=== PATIENT | male | born 1980 | race Caucasian/White ===

== ENCOUNTER 2016-08-18 21:55 | Emergency (ER) | payer MEDICAID, OTHER ==
[~2016-08-18] VITALS: Ht 167.6 cm; Wt 87.0 kg
[~2016-08-18 21:55] MED LIST: ACET325T33 PO; ALBU8.5H3 INH; PRED20TA PO
[2016-08-18 22:06] VITALS: Ht 167.6 cm; Wt 87.0 kg
--- NOTE | 2016-08-19 02:27 | ERD ---
ER Documentation Chief Complaint Date/Time DATE: 08/19/16 TIME: 02:25 Chief Complaint RUQ ABDOMINAL PAIN WITH CHEST PAIN X 1 WEEK HPI 36-year-old male presents to emergency department for complete right upper quadrant abdominal pain, mid chest pain for one week. Patient described the pain as sharp pain, 6/10 scale, is worse after eating. She denies any nausea vomiting or diarrhea. Patient denies any fever or chills. Patient denies any cough. Patient denies any dyspnea on exertion or dyspnea on lying the. Patient did not take any medications up and symptoms. ROS All systems reviewed and are negative except as per history of present illness. Medications Home Meds Active Scripts Acetaminophen* (Tylenol*) 325 Mg Tablet, 2 TAB PO Q6 Y for PAIN AND OR ELEVATED TEMP, #20 TAB Prov:PEDRO HINTON NP 09/24/15 Albuterol Sulfate* (Proair HFA*) 8.5 Gm Hfa.aer.ad, 2 PUFF INH Q4, #1 INHALER Prov:PEDRO HINTON NP 09/24/15 Prednisone* (Prednisone*) 20 Mg Tab, 40 MG PO DAILY for 4 Days, TAB Prov:PEDRO HINTON NP 09/24/15 Allergies Allergies: Coded Allergies: No Known Allergy (Unverified , 08/16/14) PMhx/Soc Medical and Surgical Hx: pt denies Medical Hx, pt denies Surgical Hx History of Surgery: No Anesthesia Reaction: No Hx Neurological Disorder: No Hx Respiratory Disorders: No Hx Cardiac Disorders: No Hx Psychiatric Problems: No Hx Miscellaneous Medical Probl: No Hx Alcohol Use: Yes Hx Substance Use: No Hx Tobacco Use: Yes Smoking Status: Current every day smoker FmHx Family History: No coronary disease, No diabetes, No other Physical Exam Vitals Vital Signs Date Time Temp Pulse Resp B/P Pulse Ox O2 Delivery O2 Flow Rate FiO2 08/18/16 22:06 96.1 81 20 120/73 98 Physical Exam GENERAL: The patient is well developed and appropriate for usual state of health, in no apparent distress. CHEST: Clear to auscultation bilaterally. There are no rales, wheezes or rhonchi. HEART: Regular rate and rhythm. No murmurs, clicks, rubs or gallops. No S3 or S4. ABDOMEN: Soft, nontender and nondistended. Good bowel sounds. No rebound or guarding. No gross peritonitis. No gross organomegaly or masses. No Ivan sign or McBurney point tenderness. BACK: No midline or flank tenderness. EXTREMITIES: Equal pulses bilaterally. There is no peripheral clubbing, cyanosis or edema. No focal swelling or erythema. Full range of motion. Grossly neurovascularly intact. NEURO: Alert and oriented. Cranial nerves 2-12 intact. Motor strength in all 4 extremities with 5/5 strength. Sensation grossly intact. Normal speech and gait. SKIN: There is no apparent rash or petechia. The skin is warm and dry. HEMATOLOGIC AND LYMPHATIC: There is no evidence of excessive bruising or lymphedema. No gross cervical, axillary, or inguinal lymphadenopathy. Result Diagram: 08/19/165 08/19/165 Results 24 hrs Laboratory Tests Test 08/19/16 02:45 Alanine Aminotransferase (ALT/SGPT) 52IU/L Albumin 4.5g/dl Albumin/Globulin Ratio 1.15 Alkaline Phosphatase 125IU/L Anion Gap 19 Aspartate Amino Transf (AST/SGOT) 29IU/L Basophils # 0.010^3/ul Basophils % 0.4% Blood Morphology Comment Blood Urea Nitrogen 17mg/dl Calcium Level 9.7mg/dl Carbon Dioxide Level 27mmol/L Chloride Level 103mmol/L Creatinine 0.67mg/dl Direct Bilirubin 0.00mg/dl Eosinophils # 0.610^3/ul Eosinophils % 6.7% Globulin 3.90g/dl Glucose Level 98mg/dl Hematocrit 43.3% Hemoglobin 15.0g/dl Indirect Bilirubin 0.2mg/dl Lipase 134U/L Lymphocytes # 3.410^3/ul Lymphocytes % 40.0% Mean Corpuscular Hemoglobin 28.9pg Mean Corpuscular Hemoglobin Concent 34.6g/dl Mean Corpuscular Volume 83.7fl Mean Platelet Volume 9.0fl Monocytes # 1.010^3/ul Monocytes % 11.4% Neutrophils # 3.610^3/ul Neutrophils % 41.5% Nucleated Red Blood Cells # 0.010^3/ul Nucleated Red Blood Cells % 0.0/100WBC Platelet Count 18470^3/UL Potassium Level 4.5mmol/L Red Blood Count 5.1710^6/ul Red Cell Distribution Width 12.8% Sodium Level 144mmol/L Total Bilirubin 0.2mg/dl Total Protein 8.4g/dl Troponin I < 0.010ng/ml Urine Bilirubin NEGATIVE Urine Clarity CLEAR Urine Color LT. YELLOW Urine Glucose NEGATIVE% Urine Hemoglobin NEGATIVE Urine Ketones NEGATIVE Urine Leukocyte Esterase NEGATIVE Urine Nitrite NEGATIVE Urine Specific [place] 1.020 Urine Total Protein NEGATIVE Urine Urobilinogen 0.2 E.U./dL Urine pH 6.0 White Blood Count 8.610^3/ul EKG was done, read by me and is normal sinus rhythm at a rate of 65, normal axis , there is no ST changes or changes in the EKG that indicates any cardiac emergencies at this time. Patient's EKG was also reviewed by Dr. Anthony. Impression: no acute findings on EKG PROCEDURE: XR Chest. CLINICAL INDICATION: difficulty breathing TECHNIQUE: Single frontal chest x-ray. COMPARISON: None. FINDINGS: The lungs are clear. No focal opacification is seen. The cardiomediastinal silhouette is unremarkable. The osseous structures are unremarkable. IMPRESSION: 1. There is no acute cardiopulmonary process. RPTAT: HJES .Carmelo Shahid MD, MD Date Time Electronically viewed and signed by .Carmelo Shahid MD, MD on 08/19/2016 02:52 .S/ PROCEDURE: US Abdomen (right upper quadrant). CLINICAL INDICATION: Abdominal pain TECHNIQUE: Multiple real-time longitudinal and transverse images of the right upper quadrant of the abdomen were acquired utilizing a curved array transducer. Images were reviewed on a high-resolution PACS workstation. COMPARISON: 08/16/2014 FINDINGS: The study is limited due to overlying bowel gas. There is mild diffuse increased hepatic echogenicity most suggestive of mild hepatic steatosis not significantly changed compared to previous study. The length of the liver equals 16.5 cm, within normal limits. There is normal hepatopedal flow within the main portal vein. The gallbladder is contracted. No definite cholelithiasis or gallbladder wall thickening is seen. No pericholecystic fluid is seen. No intra or extrahepatic biliary dilatation is seen. The common bile duct measures 3.3 mm in maximal dimension. The pancreas is not seen due to bowel gas. No free fluid is identified. The right kidney measures 12.2 cm in length. There is normal echogenicity within the right kidney. There is no perinephric fluid collection. No hydronephrosis, mass, or calculus is seen. IMPRESSION: Pancreas not seen. Mild diffuse increased hepatic echogenicity most suggestive of mild hepatic steatosis not significantly changed compared to previous study. Contracted gallbladder. Please see above. RPTAT: HJES .Carmelo Shahid MD, MD Date Time Electronically viewed and signed by .Carmelo Shahid MD, MD on 08/19/2016 03:33 .S/ CC: EARNEST MARTIN [employer] [place] Procedures/MDM Medical Decision Making: Patient symptoms consistent with gastritis, possible acid reflux assistance this is a combination of epigastric right upper quadrant pain and chest pain. There is low suspicion for abdominal emergencies at this time. Patients abdominal exam is normal at this time. Patients radiology exam does not show any abdominal emergencies at this time. There is low suspicion for appendicitis, cholecystitis, abdominal aortic aneurysms or peritonitis at this time. There is low suspicion for sepsis. Patient appears well and is hemodynamically stable. Troponin is negative. No suspicion for nSTEMI. EKG does not show any changes indicating cardiac emergencies at this time. Disposition: Home. Condition: Stable Prescription omeprazole, Zofran, and Mylanta Instructions: Patient is advised to take medications as prescribed. Patient is advised to rest, increase fluid intake and do brat diet for next 1-2 days and progress as tolerated. Patient is advised that if symptoms are worse, severe abdominal pain, uncontrolled vomiting, high fever, severe flank pain, worst signs and symptoms, to return to the emergency department immediately. Otherwise, patient can follow up with primary care doctor in 5-7 days. Departure Diagnosis: Primary Impression: Abdominal pain Abdominal location: epigastric Qualified Code: R10.13 - Epigastric pain Additional Impression: Atypical chest pain Condition: Stable Patient Instructions: Abdominal Pain, Chest Pain, Uncertain Cause Additional Instructions: Patient is advised to take medications as prescribed. Patient is advised to rest , increase fluid intake and do brat diet for next 1-2 days and progress as tolerated. Patient is advised that if symptoms are worse, severe abdominal pain , uncontrolled vomiting, high fever, severe flank pain, worst signs and symptoms , to return to the emergency department immediately. Otherwise, patient can follow up with primary care doctor in 5-7 days. EARNEST MARTIN NP Aug 19, 2016 02:27
--- NOTE | 2016-08-19 02:58 | RADRPT ---
PROCEDURE: XR Chest. CLINICAL INDICATION: Patient experiencing Abdominal Pain. TECHNIQUE: Single frontal chest x-ray. COMPARISON: 09/24/2015 FINDINGS: There is hypoinflation of the lungs. No focal pulmonary infiltrate is seen. The heart is not enlar ged.. IMPRESSION: 1. Hypoinflation of the lungs. No definite acute abnormality seen. RPTAT: HJES .Carmelo Shahid MD, MD Date Time Electronically viewed and signed by .Carmelo Shahid MD, MD on 08/19/2016 02:57 .S/
[2016-08-19 03:21] LABS: ALBUMIN 4.5 g/dl (3.3-4.9); CHLORIDE 103 mmol/L (97-110); SODIUM 144 mmol/L (135-144)
[2016-08-19 03:22] LABS: POTASSIUM 4.5 mmol/L (3.5-5.1)
[2016-08-19 03:23] LABS: CREATININE 0.67 mg/dl (0.61-1.24)
[2016-08-19 03:24] LABS: ALANINE AMINOTRANSFERASE 52 IU/L (13-69); ALBUMIN/GLOBULIN RATIO 1.15; ALKALINE PHOSPHATASE 125 IU/L (42-121); ANION GAP 19 (8-16); ASPARTATE AMINO TRANSFERASE 29 IU/L (15-46); BILIRUBIN,INDIRECT 0.2 mg/dl (0-1.1); BILIRUBIN,TOTAL 0.2 mg/dl (0.2-1.3); BLOOD UREA NITROGEN 17 mg/dl (7-20); CALCIUM 9.7 mg/dl (8.4-10.2); CARBON DIOXIDE 27 mmol/L (21-31); GLUCOSE 98 mg/dl (70-220); TOTAL PROTEIN 8.4 g/dl (6.1-8.1)
[2016-08-19 03:29] LABS: BASOPHILS % 0.4 % (0.0-2.0); EOSINOPHILS # 0.6 10^3/ul (0.0-0.5); EOSINOPHILS % 6.7 % (0.0-7.0); HEMATOCRIT 43.3 % (42.0-52.0); LYMPHOCYTES # 3.4 10^3/ul (0.8-2.9); MEAN CORPUSCULAR HEMOGLOBIN 28.9 pg (29.0-33.0); MEAN CORPUSCULAR HGB CONC 34.6 g/dl (32.0-37.0); MEAN CORPUSCULAR VOLUME 83.7 fl (82.0-101.0); MONOCYTES % 11.4 % (0.0-11.0); NEUTROPHIL # 3.6 10^3/ul (1.6-7.5); NEUTROPHILS % 41.5 % (39.0-77.0); PLATELET COUNT 300 10^3/UL (140-440); RED BLOOD COUNT 5.17 10^6/ul (4.70-6.10); RED CELL DISTRIBUTION WIDTH 12.8 % (11.5-14.5); UNCORRECTED WBC 8.6 10^3/ul (4.8-10.8); WHITE BLOOD COUNT 8.6 10^3/ul (4.8-10.8)
[2016-08-19 03:34] LABS: CONDITION 1
--- NOTE | 2016-08-19 03:34 | RADRPT ---
PROCEDURE: US Abdomen (right upper quadrant). CLINICAL INDICATION: Abdominal pain TECHNIQUE: Multiple real-time longitudinal and transverse images of the right upper quadrant of th e abdomen were acquired utilizing a curved array transducer. Images were reviewed on a high-resoluti on PACS workstation. COMPARISON: 08/16/2014 FINDINGS: The study is limited due to overlying bowel gas. There is mild diffuse increased hepatic echogenici ty most suggestive of mild hepatic steatosis not significantly changed compared to previous study. T he length of the liver equals 16.5 cm, within normal limits. There is normal hepatopedal flow within the main portal vein. The gallbladder is contracted. No definite cholelithiasis or gallbladder wal l thickening is seen. No pericholecystic fluid is seen. No intra or extrahepatic biliary dilatation is seen. The common bile duct measures 3.3 mm in maximal dimension. The pancreas is not seen due to bowel gas. No free fluid is identified. The right kidney measures 12.2 cm in length. There is normal echogenicity within the right kidney. There is no perinephric fluid collection. No hydronephrosis, mass, or calculus is seen. IMPRESSION: Pancreas not seen. Mild diffuse increased hepatic echogenicity most suggestive of mild hepatic steat osis not significantly changed compared to previous study. Contracted gallbladder. Please see above . RPTAT: HJES .Carmelo Shahid MD, Date Time Electronically viewed and signed by .Carmelo Shahid MD, on 08/19/2016 03:33 .S/
[2016-08-19 03:38] LABS: ADD UMIC NO; URINE BILIRUBIN (Dip) NEGATIVE (NEGATIVE); URINE BLOOD (Dip) NEGATIVE (NEGATIVE); URINE COLOR LT. YELLOW (YELLOW); URINE GLUCOSE (Dip) NEGATIVE (NEGATIVE); URINE KETONES (Dip) NEGATIVE (NEGATIVE); URINE LEUKOCYTE ESTERASE (Dip) NEGATIVE (NEGATIVE); URINE NITRITE (Dip) NEGATIVE (NEGATIVE); URINE TOTAL PROTEIN (Dip) NEGATIVE (NEGATIVE); URINE UROBILINOGEN (Dip) 0.2 E.U./dL (0.1-1.0)
[2016-08-19 03:43] LABS: TROPONIN-I < 0.010 ng/ml (0.00-0.12)
[2016-08-19] MEDS ORDERED: OMEP20CA16 PO (03:49)
[2016-08-19] MEDS ORDERED: MAG-19 PO (03:49)
[2016-08-19] MEDS ORDERED: ONDA4TAB14 PO (03:49)
[2016-08-19] MEDS ORDERED: LIDOCAINE/MYLANTA 40 ML BTL PO ONE (04:00)
[2016-08-19 04:23] VITALS: BP 118/68; PULSE 66; RESP 20; TEMP 98.3
== END 2016-08-19 04:47 | disposition home or self-care (01) ==
LOC: FTE 21:55
DX: R10.13 Epigastric pain (principal); F17.210 Nicotine dependence, cigarettes, uncomplicated; R07.89 Other chest pain
CPT/HCPCS: 36415; 71010; 76705; 80053; 81003; 83690; 84484; 85025; 93005; Z7502; Z7610

== ENCOUNTER 2017-09-17 20:22 | Inpatient (IN) | END 2017-09-19 14:24 | disposition home or self-care (01) | DRG 192 ==

== ENCOUNTER 2017-09-25 14:27 | Outpatient (CLI) | END 2017-09-25 15:53 | disposition home or self-care (01) ==

== ENCOUNTER 2019-04-14 16:56 | Emergency (ER) | payer MEDICAID, OTHER ==
[~2019-04-14] VITALS: Ht 167.6 cm; Wt 92.9 kg
[~2019-04-14 16:56] MED LIST changes: -ACET325T33 PO; -ALBU8.5H3 INH; +ALBU8.5H8 INH; +AZIT250T PO; +GUAI-173 PO; +GUAI120S25 PO; +IBUP-1542 PO; -PRED20TA PO
[2019-04-14 17:04] VITALS: Ht 167.6 cm; Wt 92.9 kg
[2019-04-14] MEDS ORDERED: KETOROLAC 30 MG INJ IM STA (17:33)
[2019-04-14 18:28] VITALS: BP 117/72; PULSE 68; RESP 17
== END 2019-04-14 18:27 | disposition home or self-care (01) ==
LOC: FTE 16:56
DX: J18.9 Pneumonia, unspecified organism (principal)
CPT/HCPCS: 71045; 93005; 96372; J1885; Z7502